=== PATIENT | female | born 1935 | race Caucasian/White ===

== ENCOUNTER 2019-07-11 11:47 | Inpatient (IN) ==
[2019-07-11] MEDS ORDERED: Albuterol 2.5 MG/3 ML NEBULIZER IH PRN (15:31)
[2019-07-11] MEDS: carvediloL 25 MG TABLET PO SCH (17:56)
[2019-07-11] MEDS: *HR* Metformin 500 MG TABLET PO SCH (17:56)
[2019-07-11] MEDS ORDERED: *HR* Warfarin 2.5 MG TABLET PO SCH (18:00)
[2019-07-11] MEDS: Doxycycline 100 MG CAPSULE PO SCH (19:51)
[2019-07-11] MEDS: Lactobacillus 1 EACH CAP.SPRINK PO SCH (19:51)
[2019-07-11] MEDS: *HR* HYDROcodone/Acet 5/325 mg TABLET PO PRN (20:54)
[2019-07-12 06:11] LABS: Basophils % 0.5 %; Eosinophils # 0.1 K/mcL (0.0-0.6); Eosinophils % 1.6 %; Hematocrit 31.9 % (35.3-44.9); Hemoglobin 10.1 g/dL (11.5-15.4); Immature Granulocytes % 1.3 % (0-4); Lymphocytes # 1.8 K/mcL (0.6-4.6); Lymphocytes % 23.9 %; Mean Corpuscular HGB Conc 31.7 g/dL (31.6-35.5); Mean Corpuscular Hemoglobin 29.9 pg (28.0-33.3); Mean Corpuscular Volume 94.4 fL (83.0-100.0); Mean Platelet Volume 10.5 fL (9.4-12.4); Monocytes # 0.4 K/mcL (0.0-1.3); Monocytes % 5.8 %; Neutrophils # 5.1 K/mcL (1.6-8.9); Platelet Count 238 K/mcL (140-400); Red Blood Count 3.38 M/mcL (3.82-4.97); Red Cell Distribution Width 14.6 % (11.5-14.5); Segmented Neutrophils % 66.9 %; White Blood Count 7.6 K/mcL (4.3-11.1)
[2019-07-12 06:35] LABS: BUN/Creatinine Ratio 23 (6-26); Blood Urea Nitrogen 15 mg/dL (8-23); Calcium 8.8 mg/dL (8.6-10.3); Carbon Dioxide 26 mEq/L (23-29); Chloride 106 mEq/L (98-107); Glucose 80 mg/dL (70-105); Osmolality,Calculated 294 (280-300); Potassium 3.8 mEq/L (3.5-5.1); Sodium 142 mEq/L (136-145); eGFR For African Americans > 60 (> 60); eGFR For Non-African Americans > 60 (> 60)
[2019-07-12] MEDS: predniSONE 10 MG TABLET PO SCH (08:00)
[2019-07-12] MEDS: carvediloL 25 MG TABLET PO SCH ×2 (08:00→16:56)
[2019-07-12] MEDS: Doxycycline 100 MG CAPSULE PO SCH ×2 (08:00→20:11)
[2019-07-12] MEDS: Folic Acid 1 MG TABLET PO SCH (08:00)
[2019-07-12] MEDS: allopurinoL 300 MG TABLET PO SCH (08:00)
[2019-07-12] MEDS: Cholecalciferol (D-3) 1,000 UNIT (25MCG) TABLET PO SCH (08:00)
[2019-07-12] MEDS: Lactobacillus 1 EACH CAP.SPRINK PO SCH ×2 (08:01→20:11)
[2019-07-12] MEDS: *HR* Metformin 500 MG TABLET PO SCH ×2 (08:01→16:56)
[2019-07-12] MEDS: Cyanocobalamin (B-12) 1,000 MCG TABLET PO SCH (08:01)
[2019-07-12] MEDS: *HR* Digoxin 0.125 MG TABLET PO SCH (08:01)
[2019-07-12] MEDS: *HR* HYDROcodone/Acet 5/325 mg TABLET PO PRN ×2 (08:24→17:00)
[2019-07-12 08:35] LABS: INR 1.8; Prothrombin Time 20.4 Seconds (9.4-12.1)
[2019-07-12] MEDS ORDERED: amLODIPine 5 MG TABLET PO SCH (09:00)
[2019-07-12] MEDS: Ertapenem 1,000 MG in 0.9 % Sodium Chloride Mini Bag 100 ML IVPB SCH (09:25)
[2019-07-12] MEDS ORDERED: amLODIPine 5 MG TABLET PO ONE (14:51)
[2019-07-12] MEDS ORDERED: Warfarin perPT PO PRN (18:00)
[2019-07-12] MEDS ORDERED: *HR* Warfarin 2.5 MG TABLET PO ONE (18:00)
[2019-07-12] MEDS ORDERED: *HR* Warfarin 1 MG TABLET PO SCH (18:00)
[2019-07-13] MEDS: *HR* HYDROcodone/Acet 5/325 mg TABLET PO PRN ×2 (05:45→21:20)
[2019-07-13] MEDS: Ertapenem 1,000 MG in 0.9 % Sodium Chloride Mini Bag 100 ML IVPB SCH (08:12)
[2019-07-13] MEDS: predniSONE 10 MG TABLET PO SCH (08:13)
[2019-07-13] MEDS: carvediloL 25 MG TABLET PO SCH ×2 (08:13→16:20)
[2019-07-13] MEDS: Cholecalciferol (D-3) 1,000 UNIT (25MCG) TABLET PO SCH (08:13)
[2019-07-13] MEDS: Doxycycline 100 MG CAPSULE PO SCH ×2 (08:13→21:20)
[2019-07-13] MEDS: allopurinoL 300 MG TABLET PO SCH (08:13)
[2019-07-13] MEDS: Lactobacillus 1 EACH CAP.SPRINK PO SCH ×2 (08:13→21:21)
[2019-07-13] MEDS: Cyanocobalamin (B-12) 1,000 MCG TABLET PO SCH (08:13)
[2019-07-13] MEDS: amLODIPine 5 MG TABLET PO SCH (08:13)
[2019-07-13] MEDS: *HR* Metformin 500 MG TABLET PO SCH ×2 (08:13→16:20)
[2019-07-13] MEDS: *HR* Digoxin 0.125 MG TABLET PO SCH (08:13)
[2019-07-13] MEDS: Folic Acid 1 MG TABLET PO SCH (08:13)
[2019-07-13 11:25] LABS: INR 1.7; Prothrombin Time 18.9 Seconds (9.4-12.1)
[2019-07-13] MEDS ORDERED: *HR* Warfarin 3 MG TABLET PO ONE (18:00)
[2019-07-14 08:21] LABS: Prothrombin Time 22.2 Seconds (9.4-12.1)
[2019-07-14] MEDS: Ertapenem 1,000 MG in 0.9 % Sodium Chloride Mini Bag 100 ML IVPB SCH (10:07)
[2019-07-14] MEDS: Lactobacillus 1 EACH CAP.SPRINK PO SCH ×2 (10:07→21:02)
[2019-07-14] MEDS: Cholecalciferol (D-3) 1,000 UNIT (25MCG) TABLET PO SCH (10:08)
[2019-07-14] MEDS: Cyanocobalamin (B-12) 1,000 MCG TABLET PO SCH (10:08)
[2019-07-14] MEDS: *HR* Digoxin 0.125 MG TABLET PO SCH (10:08)
[2019-07-14] MEDS: allopurinoL 300 MG TABLET PO SCH (10:08)
[2019-07-14] MEDS: predniSONE 10 MG TABLET PO SCH (10:08)
[2019-07-14] MEDS: carvediloL 25 MG TABLET PO SCH ×2 (10:08→18:33)
[2019-07-14] MEDS: amLODIPine 5 MG TABLET PO SCH (10:08)
[2019-07-14] MEDS: Folic Acid 1 MG TABLET PO SCH (10:08)
[2019-07-14] MEDS: *HR* Metformin 500 MG TABLET PO SCH ×2 (10:08→18:33)
[2019-07-14] MEDS: Doxycycline 100 MG CAPSULE PO SCH ×2 (10:08→21:02)
[2019-07-14] MEDS: *HR* HYDROcodone/Acet 5/325 mg TABLET PO PRN ×2 (11:31→21:02)
[2019-07-14] MEDS ORDERED: *HR* Warfarin 3 MG TABLET PO ONE (18:00)
[2019-07-15 07:41] LABS: Hematocrit 32.7 % (35.3-44.9); Hemoglobin 10.6 g/dL (11.5-15.4); Mean Corpuscular HGB Conc 32.4 g/dL (31.6-35.5); Mean Corpuscular Hemoglobin 30.2 pg (28.0-33.3); Mean Corpuscular Volume 93.2 fL (83.0-100.0); Mean Platelet Volume 10.1 fL (9.4-12.4); Platelet Count 255 K/mcL (140-400); Red Blood Count 3.51 M/mcL (3.82-4.97); Red Cell Distribution Width 14.2 % (11.5-14.5); White Blood Count 8.5 K/mcL (4.3-11.1)
[2019-07-15 07:57] LABS: Prothrombin Time 22.3 Seconds (9.4-12.1)
[2019-07-15] MEDS: Ertapenem 1,000 MG in 0.9 % Sodium Chloride Mini Bag 100 ML IVPB SCH (09:02)
[2019-07-15] MEDS: *HR* Metformin 500 MG TABLET PO SCH ×2 (09:05→17:07)
[2019-07-15] MEDS: carvediloL 25 MG TABLET PO SCH ×2 (09:05→17:07)
[2019-07-15] MEDS: Doxycycline 100 MG CAPSULE PO SCH ×2 (09:05→20:40)
[2019-07-15] MEDS: *HR* Digoxin 0.125 MG TABLET PO SCH (09:05)
[2019-07-15] MEDS: Cholecalciferol (D-3) 1,000 UNIT (25MCG) TABLET PO SCH (09:06)
[2019-07-15] MEDS: allopurinoL 300 MG TABLET PO SCH (09:06)
[2019-07-15] MEDS: Folic Acid 1 MG TABLET PO SCH (09:06)
[2019-07-15] MEDS: predniSONE 10 MG TABLET PO SCH (09:06)
[2019-07-15] MEDS: Lactobacillus 1 EACH CAP.SPRINK PO SCH ×2 (09:06→20:40)
[2019-07-15] MEDS: Cyanocobalamin (B-12) 1,000 MCG TABLET PO SCH (09:06)
[2019-07-15] MEDS: amLODIPine 5 MG TABLET PO SCH (09:06)
[2019-07-15 09:12] LABS: BUN/Creatinine Ratio 30 (6-26); Blood Urea Nitrogen 21 mg/dL (8-23); Carbon Dioxide 28 mEq/L (23-29); Chloride 105 mEq/L (98-107); Glucose 71 mg/dL (70-105); Osmolality,Calculated 293 (280-300); Sodium 141 mEq/L (136-145); eGFR For African Americans > 60 (> 60); eGFR For Non-African Americans > 60 (> 60)
[2019-07-15 09:50] LABS: Calcium 8.5 mg/dL (8.6-10.3)
[2019-07-15] MEDS: *HR* HYDROcodone/Acet 5/325 mg TABLET PO PRN (17:16)
[2019-07-15] MEDS ORDERED: *HR* Warfarin 3 MG TABLET PO ONE (18:00)
[2019-07-16] MEDS: *HR* LORazepam 0.5 MG TABLET PO PRN ×2 (04:28→21:33)
[2019-07-16 07:19] LABS: INR 2.1; Prothrombin Time 24.4 Seconds (9.4-12.1)
[2019-07-16] MEDS: Folic Acid 1 MG TABLET PO SCH (09:19)
[2019-07-16] MEDS: Cyanocobalamin (B-12) 1,000 MCG TABLET PO SCH (09:19)
[2019-07-16] MEDS: amLODIPine 5 MG TABLET PO SCH (09:19)
[2019-07-16] MEDS: carvediloL 25 MG TABLET PO SCH ×2 (09:19→18:12)
[2019-07-16] MEDS: *HR* Metformin 500 MG TABLET PO SCH ×2 (09:19→18:12)
[2019-07-16] MEDS: predniSONE 10 MG TABLET PO SCH (09:19)
[2019-07-16] MEDS: *HR* Digoxin 0.125 MG TABLET PO SCH (09:19)
[2019-07-16] MEDS: allopurinoL 300 MG TABLET PO SCH (09:19)
[2019-07-16] MEDS: Ertapenem 1,000 MG in 0.9 % Sodium Chloride Mini Bag 100 ML IVPB SCH (09:21)
[2019-07-16] MEDS: Cholecalciferol (D-3) 1,000 UNIT (25MCG) TABLET PO SCH (09:22)
[2019-07-16] MEDS: Lactobacillus 1 EACH CAP.SPRINK PO SCH ×2 (09:22→21:33)
[2019-07-16] MEDS ORDERED: *HR* Warfarin 3 MG TABLET PO ONE (18:00)
[2019-07-17] MEDS: Cyanocobalamin (B-12) 1,000 MCG TABLET PO SCH (08:16)
[2019-07-17] MEDS: predniSONE 10 MG TABLET PO SCH (08:16)
[2019-07-17] MEDS: Folic Acid 1 MG TABLET PO SCH (08:16)
[2019-07-17] MEDS: *HR* Digoxin 0.125 MG TABLET PO SCH (08:16)
[2019-07-17] MEDS: carvediloL 25 MG TABLET PO SCH ×2 (08:16→17:00)
[2019-07-17] MEDS: amLODIPine 5 MG TABLET PO SCH (08:16)
[2019-07-17] MEDS: Cholecalciferol (D-3) 1,000 UNIT (25MCG) TABLET PO SCH (08:16)
[2019-07-17 08:17] LABS: INR 2.1; Prothrombin Time 23.7 Seconds (9.4-12.1)
[2019-07-17] MEDS: Lactobacillus 1 EACH CAP.SPRINK PO SCH ×2 (08:17→20:19)
[2019-07-17] MEDS: allopurinoL 300 MG TABLET PO SCH (08:17)
[2019-07-17] MEDS: *HR* Metformin 500 MG TABLET PO SCH ×2 (08:18→17:00)
[2019-07-17] MEDS ORDERED: haloperidoL 1 MG TABLET PO PRN (09:39)
[2019-07-17] MEDS: *HR* HYDROcodone/Acet 5/325 mg TABLET PO PRN (15:25)
[2019-07-17] MEDS ORDERED: *HR* Warfarin 3 MG TABLET PO ONE (18:00)
[2019-07-18 06:49] LABS: Basophils % 0.5 %; Eosinophils # 0.1 K/mcL (0.0-0.6); Eosinophils % 1.3 %; Hematocrit 34.2 % (35.3-44.9); Immature Granulocytes % 0.3 % (0-4); Lymphocytes # 1.4 K/mcL (0.6-4.6); Mean Corpuscular HGB Conc 32.2 g/dL (31.6-35.5); Mean Corpuscular Hemoglobin 30.2 pg (28.0-33.3); Monocytes # 0.4 K/mcL (0.0-1.3); Monocytes % 5.6 %; Neutrophils # 5.8 K/mcL (1.6-8.9); Platelet Count 244 K/mcL (140-400); Red Blood Count 3.64 M/mcL (3.82-4.97); Red Cell Distribution Width 14.1 % (11.5-14.5); Segmented Neutrophils % 74.3 %; White Blood Count 7.7 K/mcL (4.3-11.1)
[2019-07-18 06:58] LABS: INR 2.9; Prothrombin Time 32.8 Seconds (9.4-12.1)
[2019-07-18 07:09] LABS: BUN/Creatinine Ratio 26 (6-26); Blood Urea Nitrogen 20 mg/dL (8-23); Calcium 8.6 mg/dL (8.6-10.3); Carbon Dioxide 25 mEq/L (23-29); Chloride 105 mEq/L (98-107); Glucose 92 mg/dL (70-105); Osmolality,Calculated 294 (280-300); Potassium 4.1 mEq/L (3.5-5.1); Sodium 141 mEq/L (136-145); eGFR For African Americans > 60 (> 60); eGFR For Non-African Americans > 60 (> 60)
[2019-07-18] MEDS: *HR* Metformin 500 MG TABLET PO SCH ×2 (09:22→17:42)
[2019-07-18] MEDS: *HR* Digoxin 0.125 MG TABLET PO SCH (09:22)
[2019-07-18] MEDS: amLODIPine 5 MG TABLET PO SCH (09:22)
[2019-07-18] MEDS: Cyanocobalamin (B-12) 1,000 MCG TABLET PO SCH (09:22)
[2019-07-18] MEDS: carvediloL 25 MG TABLET PO SCH ×2 (09:22→17:42)
[2019-07-18] MEDS: allopurinoL 300 MG TABLET PO SCH (09:22)
[2019-07-18] MEDS: Cholecalciferol (D-3) 1,000 UNIT (25MCG) TABLET PO SCH (09:22)
[2019-07-18] MEDS: predniSONE 10 MG TABLET PO SCH (09:23)
[2019-07-18] MEDS: Folic Acid 1 MG TABLET PO SCH (09:23)
[2019-07-18] MEDS: Lactobacillus 1 EACH CAP.SPRINK PO SCH ×2 (09:23→20:25)
[2019-07-18] MEDS: *HR* HYDROcodone/Acet 5/325 mg TABLET PO PRN (17:45)
[2019-07-18] MEDS ORDERED: *HR* Warfarin 1 MG TABLET PO ONE (18:00)
[2019-07-19] MEDS: Lactobacillus 1 EACH CAP.SPRINK PO SCH ×2 (08:09→21:20)
[2019-07-19] MEDS: carvediloL 25 MG TABLET PO SCH ×2 (08:09→17:03)
[2019-07-19] MEDS: *HR* Digoxin 0.125 MG TABLET PO SCH (08:09)
[2019-07-19] MEDS: Cholecalciferol (D-3) 1,000 UNIT (25MCG) TABLET PO SCH (08:09)
[2019-07-19] MEDS: Folic Acid 1 MG TABLET PO SCH (08:09)
[2019-07-19] MEDS: predniSONE 10 MG TABLET PO SCH (08:09)
[2019-07-19] MEDS: Cyanocobalamin (B-12) 1,000 MCG TABLET PO SCH (08:09)
[2019-07-19] MEDS: allopurinoL 300 MG TABLET PO SCH (08:10)
[2019-07-19] MEDS: *HR* Metformin 500 MG TABLET PO SCH ×2 (08:10→17:03)
[2019-07-19] MEDS: amLODIPine 5 MG TABLET PO SCH (08:10)
[2019-07-19] MEDS: *HR* HYDROcodone/Acet 5/325 mg TABLET PO PRN ×2 (08:14→21:25)
[2019-07-19 09:23] LABS: INR 3.3
[2019-07-20 06:49] VITALS: BP 143/80
[2019-07-20 08:10] LABS: INR 2.8; Prothrombin Time 31.7 Seconds (9.4-12.1)
[2019-07-20] MEDS: carvediloL 25 MG TABLET PO SCH (08:32)
[2019-07-20] MEDS: Cyanocobalamin (B-12) 1,000 MCG TABLET PO SCH (08:32)
[2019-07-20] MEDS: *HR* Metformin 500 MG TABLET PO SCH (08:32)
[2019-07-20] MEDS: predniSONE 10 MG TABLET PO SCH (08:32)
[2019-07-20] MEDS: Folic Acid 1 MG TABLET PO SCH (08:32)
[2019-07-20] MEDS: allopurinoL 300 MG TABLET PO SCH (08:32)
[2019-07-20] MEDS: *HR* Digoxin 0.125 MG TABLET PO SCH (08:32)
[2019-07-20] MEDS: Cholecalciferol (D-3) 1,000 UNIT (25MCG) TABLET PO SCH (08:33)
[2019-07-20] MEDS: amLODIPine 5 MG TABLET PO SCH (08:33)
[2019-07-20] MEDS: Lactobacillus 1 EACH CAP.SPRINK PO SCH (08:33)
[2019-07-20] MEDS: *HR* HYDROcodone/Acet 5/325 mg TABLET PO PRN (08:41)
== END 2019-07-20 13:07 | DRG 690 ==
LOC: INPPIK 16:26
PROVIDERS: ADMIT Family Medicine; ATTEND Family Medicine

== ENCOUNTER 2020-01-18 22:53 | Inpatient (IN) ==
[2020-01-19] MEDS: carvediloL 6.25 MG TABLET PO SCH (15:55)
[2020-01-19] MEDS: *HR* Metformin 500 MG TABLET PO SCH (17:28)
[2020-01-19] MEDS ORDERED: Warfarin perPT PO PRN (18:00)
[2020-01-19] MEDS: Gabapentin 300 MG CAPSULE PO SCH (20:15)
[2020-01-19] MEDS ORDERED: *HR* HYDROcodone/Acet 10/325 mg TABLET PO ONE (20:30)
[2020-01-19] MEDS: Budesonide/Formoterol 80/4.5 1 PUFF INH IH SCH ×2 (21:04→21:09)
[2020-01-19] MEDS ORDERED: *HR* Dextrose 50 % in Water (Vial) 50 ML VIAL IVP PRN (22:00)
[2020-01-19] MEDS ORDERED: D5% in Water 1,000 ML IVC PRN (22:00)
[2020-01-19] MEDS ORDERED: Dextrose Gel 15 GM/37.5 ML TUBE PO PRN ×2 (22:00)
[2020-01-19] MEDS: Insulin LISPRO 300 UNITS/3 ML VIAL SQ SCH (22:43)
[2020-01-20 07:22] LABS: Basophils % 0.2 %; Eosinophils % 0.2 %; Hematocrit 19.9 % (35.3-44.9); Lymphocytes # 1.3 K/mcL (0.6-4.6); Lymphocytes % 10.4 %; Mean Corpuscular HGB Conc 32.7 g/dL (31.6-35.5); Mean Corpuscular Volume 91.7 fL (83.0-100.0); Mean Platelet Volume 10.2 fL (9.4-12.4); Monocytes % 5.9 %; Nucleated Red Blood Cells 0.9 /100 WBC (0); Platelet Count 272 K/mcL (140-400); Red Blood Count 2.17 M/mcL (3.82-4.97); Red Cell Distribution Width 15.4 % (11.5-14.5); Segmented Neutrophils % 81.3 %; White Blood Count 12.6 K/mcL (4.3-11.1)
[2020-01-20 07:25] LABS: Monocytes # 0.7 K/mcL (0.0-1.3); Neutrophils # 10.2 K/mcL (1.6-8.9)
[2020-01-20 07:27] LABS: Hemoglobin 6.5 g/dL (11.5-15.4)
[2020-01-20 07:41] LABS: Calcium 8.2 mg/dL (8.6-10.3); Magnesium 1.3 mg/dL (1.6-2.6); Potassium 2.7 mEq/L (3.5-5.1)
[2020-01-20 07:43] LABS: Prothrombin Time 23.1 Seconds (9.4-12.1)
[2020-01-20] MEDS: Budesonide/Formoterol 80/4.5 1 PUFF INH IH SCH ×2 (08:30→21:19)
[2020-01-20] MEDS ORDERED: 0.9 % Sodium Chloride 250 ML IVC SCH (09:00)
[2020-01-20] MEDS: Cholecalciferol (D-3) 1,000 UNIT (25MCG) TABLET PO SCH (09:03)
[2020-01-20] MEDS: Cyanocobalamin (B-12) 1,000 MCG TABLET PO SCH (09:03)
[2020-01-20] MEDS: Gabapentin 300 MG CAPSULE PO SCH ×2 (09:03→21:09)
[2020-01-20] MEDS: Bumetanide 1 MG TABLET PO SCH (09:03)
[2020-01-20] MEDS: amLODIPine 5 MG TABLET PO SCH (09:03)
[2020-01-20] MEDS: carvediloL 6.25 MG TABLET PO SCH (09:03)
[2020-01-20] MEDS: DilTIAZem CD (24hr) 180 MG CAP.ER.24H PO SCH (09:03)
[2020-01-20] MEDS: *HR* Metformin 500 MG TABLET PO SCH ×2 (09:03→17:32)
[2020-01-20] MEDS: Insulin LISPRO 300 UNITS/3 ML VIAL SQ SCH ×4 (09:04→20:49)
[2020-01-20] MEDS: allopurinoL 300 MG TABLET PO SCH (09:04)
[2020-01-20 09:37] LABS: Estimated Average Glucose 151 mg/dl; Hemoglobin A1C 6.9 %
[2020-01-20] MEDS ORDERED: 0.9 % Sodium Chloride 500 ML IVC ONE (11:27)
[2020-01-20] MEDS ORDERED: *HR* Warfarin 2 MG TABLET PO ONE (18:00)
[2020-01-20] MEDS ORDERED: 0.9 % Sodium Chloride 250 ML ONE (23:23)
[2020-01-21 06:06] LABS: Basophils % 0.4 %; Eosinophils # 0.1 K/mcL (0.0-0.6); Eosinophils % 1.3 %; Hematocrit 28.3 % (35.3-44.9); Hemoglobin 9.6 g/dL (11.5-15.4); Immature Granulocytes % 2.6 % (0-4); Lymphocytes # 1.7 K/mcL (0.6-4.6); Lymphocytes % 18.4 %; Mean Corpuscular HGB Conc 33.9 g/dL (31.6-35.5); Mean Corpuscular Hemoglobin 29.4 pg (28.0-33.3); Mean Corpuscular Volume 86.8 fL (83.0-100.0); Mean Platelet Volume 9.7 fL (9.4-12.4); Monocytes # 0.7 K/mcL (0.0-1.3); Monocytes % 7.5 %; Neutrophils # 6.5 K/mcL (1.6-8.9); Nucleated Red Blood Cells 0.8 /100 WBC (0); Platelet Count 238 K/mcL (140-400); Red Blood Count 3.26 M/mcL (3.82-4.97); Red Cell Distribution Width 15.4 % (11.5-14.5); Segmented Neutrophils % 69.8 %; White Blood Count 9.3 K/mcL (4.3-11.1)
[2020-01-21 06:44] LABS: Calcium 8.5 mg/dL (8.6-10.3); Magnesium 1.6 mg/dL (1.6-2.6); Potassium 2.5 mEq/L (3.5-5.1)
[2020-01-21 07:11] LABS: INR 1.4; Prothrombin Time 16.1 Seconds (9.4-12.1)
[2020-01-21] MEDS: Budesonide/Formoterol 80/4.5 1 PUFF INH IH SCH ×2 (07:50→21:31)
[2020-01-21] MEDS: allopurinoL 300 MG TABLET PO SCH (09:47)
[2020-01-21] MEDS: Cholecalciferol (D-3) 1,000 UNIT (25MCG) TABLET PO SCH (09:47)
[2020-01-21] MEDS: Gabapentin 300 MG CAPSULE PO SCH ×2 (09:47→21:17)
[2020-01-21] MEDS: Acetaminophen 325 MG TABLET PO PRN (09:50)
[2020-01-21] MEDS: DilTIAZem CD (24hr) 180 MG CAP.ER.24H PO SCH (09:50)
[2020-01-21] MEDS: *HR* Metformin 500 MG TABLET PO SCH ×2 (09:51→18:01)
[2020-01-21] MEDS: Insulin LISPRO 300 UNITS/3 ML VIAL SQ SCH ×4 (09:59→20:40)
[2020-01-21] MEDS: Cyanocobalamin (B-12) 1,000 MCG TABLET PO SCH (10:00)
[2020-01-21] MEDS ORDERED: Furosemide 20 MG/2 ML VIAL IVP ONE ×2 (11:48→14:00)
[2020-01-21] MEDS ORDERED: *HR* Warfarin 4 MG TABLET PO SCH (14:08)
[2020-01-21] MEDS: *HR* OxyCODONE Immed Rel 5 MG TABLET PO PRN (18:00)
[2020-01-21] MEDS: carvediloL 6.25 MG TABLET PO SCH (18:01)
[2020-01-22 07:16] LABS: Basophils % 0.4 %; Eosinophils # 0.2 K/mcL (0.0-0.6); Eosinophils % 1.5 %; Hematocrit 28.4 % (35.3-44.9); Hemoglobin 9.4 g/dL (11.5-15.4); Immature Granulocytes % 2.6 % (0-4); Lymphocytes % 20.2 %; Mean Corpuscular HGB Conc 33.1 g/dL (31.6-35.5); Mean Corpuscular Hemoglobin 29.4 pg (28.0-33.3); Mean Corpuscular Volume 88.8 fL (83.0-100.0); Mean Platelet Volume 9.9 fL (9.4-12.4); Monocytes # 0.8 K/mcL (0.0-1.3); Monocytes % 7.9 %; Neutrophils # 6.7 K/mcL (1.6-8.9); Nucleated Red Blood Cells 0.8 /100 WBC (0); Platelet Count 246 K/mcL (140-400); Red Cell Distribution Width 16.1 % (11.5-14.5); Segmented Neutrophils % 67.4 %; White Blood Count 9.9 K/mcL (4.3-11.1)
[2020-01-22 07:54] LABS: INR 1.3; Prothrombin Time 14.8 Seconds (9.4-12.1)
[2020-01-22 08:13] LABS: Calcium 8.4 mg/dL (8.6-10.3); Potassium 4.2 mEq/L (3.5-5.1)
[2020-01-22] MEDS: Bumetanide 1 MG TABLET PO SCH (08:44)
[2020-01-22] MEDS: Cyanocobalamin (B-12) 1,000 MCG TABLET PO SCH (08:44)
[2020-01-22] MEDS: Cholecalciferol (D-3) 1,000 UNIT (25MCG) TABLET PO SCH (08:44)
[2020-01-22] MEDS: allopurinoL 300 MG TABLET PO SCH (08:44)
[2020-01-22] MEDS: carvediloL 6.25 MG TABLET PO SCH ×2 (08:44→17:24)
[2020-01-22] MEDS: DilTIAZem CD (24hr) 180 MG CAP.ER.24H PO SCH (08:44)
[2020-01-22] MEDS: Gabapentin 300 MG CAPSULE PO SCH ×2 (08:44→21:55)
[2020-01-22] MEDS: *HR* Metformin 500 MG TABLET PO SCH ×2 (08:44→17:33)
[2020-01-22] MEDS: Insulin LISPRO 300 UNITS/3 ML VIAL SQ SCH ×4 (08:45→21:54)
[2020-01-22] MEDS: amLODIPine 5 MG TABLET PO SCH (08:45)
[2020-01-22] MEDS: Budesonide/Formoterol 80/4.5 1 PUFF INH IH SCH ×2 (10:31→20:32)
[2020-01-22] MEDS: *HR* OxyCODONE Immed Rel 5 MG TABLET PO PRN (12:24)
[2020-01-22] MEDS ORDERED: *HR* Warfarin 1 MG TABLET PO ONE (18:00)
[2020-01-23] MEDS: *HR* OxyCODONE Immed Rel 5 MG TABLET PO PRN (05:23)
[2020-01-23 07:01] LABS: INR 1.2; Prothrombin Time 13.3 Seconds (9.4-12.1)
[2020-01-23] MEDS: allopurinoL 300 MG TABLET PO SCH (09:14)
[2020-01-23] MEDS: Gabapentin 300 MG CAPSULE PO SCH ×2 (09:14→20:18)
[2020-01-23] MEDS: Bumetanide 1 MG TABLET PO SCH (09:14)
[2020-01-23] MEDS: DilTIAZem CD (24hr) 180 MG CAP.ER.24H PO SCH (09:14)
[2020-01-23] MEDS: Cholecalciferol (D-3) 1,000 UNIT (25MCG) TABLET PO SCH (09:14)
[2020-01-23] MEDS: Cyanocobalamin (B-12) 1,000 MCG TABLET PO SCH (09:14)
[2020-01-23] MEDS: Insulin LISPRO 300 UNITS/3 ML VIAL SQ SCH ×4 (09:14→20:18)
[2020-01-23] MEDS: *HR* Metformin 500 MG TABLET PO SCH ×2 (09:15→17:45)
[2020-01-23] MEDS: carvediloL 6.25 MG TABLET PO SCH ×2 (09:15→17:45)
[2020-01-23 09:38] LABS: Hematocrit 30.5 % (35.3-44.9); Hemoglobin 10.1 g/dL (11.5-15.4); Mean Corpuscular HGB Conc 33.1 g/dL (31.6-35.5); Mean Corpuscular Hemoglobin 29.8 pg (28.0-33.3); Mean Platelet Volume 9.8 fL (9.4-12.4); Platelet Count 240 K/mcL (140-400); Red Blood Count 3.39 M/mcL (3.82-4.97); Red Cell Distribution Width 16.1 % (11.5-14.5); White Blood Count 11.8 K/mcL (4.3-11.1)
[2020-01-23 09:50] LABS: Calcium 8.9 mg/dL (8.6-10.3)
[2020-01-23] MEDS: Budesonide/Formoterol 80/4.5 1 PUFF INH IH SCH ×2 (10:18→22:04)
[2020-01-23] MEDS ORDERED: *HR* Warfarin 1 MG TABLET PO ONE (18:00)
[2020-01-24] MEDS: *HR* OxyCODONE Immed Rel 5 MG TABLET PO PRN (05:44)
[2020-01-24 06:45] LABS: INR 1.1; Prothrombin Time 12.9 Seconds (9.4-12.1)
[2020-01-24] MEDS: Insulin LISPRO 300 UNITS/3 ML VIAL SQ SCH ×4 (08:57→21:37)
[2020-01-24] MEDS: Budesonide/Formoterol 80/4.5 1 PUFF INH IH SCH ×3 (09:06→21:00)
[2020-01-24] MEDS: DilTIAZem CD (24hr) 180 MG CAP.ER.24H PO SCH (09:08)
[2020-01-24] MEDS: allopurinoL 300 MG TABLET PO SCH (09:08)
[2020-01-24] MEDS: Cholecalciferol (D-3) 1,000 UNIT (25MCG) TABLET PO SCH (09:08)
[2020-01-24] MEDS: carvediloL 6.25 MG TABLET PO SCH ×2 (09:08→17:45)
[2020-01-24] MEDS: Gabapentin 300 MG CAPSULE PO SCH ×2 (09:08→21:38)
[2020-01-24] MEDS: Cyanocobalamin (B-12) 1,000 MCG TABLET PO SCH (09:08)
[2020-01-24] MEDS: *HR* Metformin 500 MG TABLET PO SCH ×2 (09:08→17:44)
[2020-01-24] MEDS: Bumetanide 1 MG TABLET PO SCH (09:09)
[2020-01-24] MEDS: Ondansetron ODT 4 MG TAB.RAPDIS SL PRN (14:29)
[2020-01-24] MEDS: 0.9 % Sodium Chloride 1,000 ML IVC SCH ×2 (14:29→22:42)
[2020-01-24] MEDS ORDERED: *HR* Warfarin 2 MG TABLET PO ONE (18:00)
[2020-01-24] MEDS: Sennosides/Docusate Sodium TABLET PO SCH (21:38)
[2020-01-25] MEDS: 0.9 % Sodium Chloride 1,000 ML IVC SCH ×3 (06:30→21:43)
[2020-01-25 08:14] LABS: INR 1.1; Prothrombin Time 12.6 Seconds (9.4-12.1)
[2020-01-25] MEDS: Budesonide/Formoterol 80/4.5 1 PUFF INH IH SCH ×2 (08:38→21:45)
[2020-01-25] MEDS: allopurinoL 300 MG TABLET PO SCH (08:52)
[2020-01-25] MEDS: Sennosides/Docusate Sodium TABLET PO SCH ×2 (08:52→20:26)
[2020-01-25] MEDS: Bumetanide 1 MG TABLET PO SCH (08:52)
[2020-01-25] MEDS: DilTIAZem CD (24hr) 180 MG CAP.ER.24H PO SCH (08:52)
[2020-01-25] MEDS: *HR* Metformin 500 MG TABLET PO SCH ×2 (08:52→17:24)
[2020-01-25] MEDS: Gabapentin 300 MG CAPSULE PO SCH ×2 (08:52→20:26)
[2020-01-25] MEDS: Cyanocobalamin (B-12) 1,000 MCG TABLET PO SCH (08:53)
[2020-01-25] MEDS: Insulin LISPRO 300 UNITS/3 ML VIAL SQ SCH ×4 (08:54→20:26)
[2020-01-25] MEDS: Cholecalciferol (D-3) 1,000 UNIT (25MCG) TABLET PO SCH (08:55)
[2020-01-25] MEDS ORDERED: *HR* Warfarin 2 MG TABLET PO ONE (18:00)
[2020-01-25] MEDS: *HR* OxyCODONE Immed Rel 5 MG TABLET PO PRN (21:42)
[2020-01-26] MEDS: 0.9 % Sodium Chloride 1,000 ML IVC SCH ×3 (05:28→23:38)
[2020-01-26] MEDS: *HR* OxyCODONE Immed Rel 5 MG TABLET PO PRN (05:29)
[2020-01-26 07:59] LABS: Hemoglobin 8.8 g/dL (11.5-15.4); Mean Corpuscular HGB Conc 32.6 g/dL (31.6-35.5); Mean Corpuscular Hemoglobin 30.2 pg (28.0-33.3); Mean Corpuscular Volume 92.8 fL (83.0-100.0); Mean Platelet Volume 10.1 fL (9.4-12.4); Platelet Count 225 K/mcL (140-400); Red Blood Count 2.91 M/mcL (3.82-4.97); Red Cell Distribution Width 16.4 % (11.5-14.5); White Blood Count 9.8 K/mcL (4.3-11.1)
[2020-01-26 08:15] LABS: Calcium 8.1 mg/dL (8.6-10.3); INR 1.1; Magnesium 1.3 mg/dL (1.6-2.6); Potassium 3.8 mEq/L (3.5-5.1); Prothrombin Time 12.7 Seconds (9.4-12.1)
[2020-01-26] MEDS: Insulin LISPRO 300 UNITS/3 ML VIAL SQ SCH ×4 (08:42→21:05)
[2020-01-26] MEDS: DilTIAZem CD (24hr) 180 MG CAP.ER.24H PO SCH ×2 (08:49→09:00)
[2020-01-26] MEDS: Gabapentin 300 MG CAPSULE PO SCH ×2 (08:49→20:30)
[2020-01-26] MEDS: Sennosides/Docusate Sodium TABLET PO SCH ×2 (08:49→20:30)
[2020-01-26] MEDS: Cyanocobalamin (B-12) 1,000 MCG TABLET PO SCH (08:49)
[2020-01-26] MEDS: allopurinoL 300 MG TABLET PO SCH (08:49)
[2020-01-26] MEDS: *HR* Metformin 500 MG TABLET PO SCH ×2 (08:49→18:05)
[2020-01-26] MEDS: Cholecalciferol (D-3) 1,000 UNIT (25MCG) TABLET PO SCH (08:49)
[2020-01-26] MEDS: Budesonide/Formoterol 80/4.5 1 PUFF INH IH SCH ×2 (11:01→22:12)
[2020-01-26] MEDS ORDERED: *HR* Warfarin 2 MG TABLET PO ONE (18:00)
[2020-01-27] MEDS: 0.9 % Sodium Chloride 1,000 ML IVC SCH (06:44)
[2020-01-27 07:24] LABS: INR 1.1; Prothrombin Time 12.6 Seconds (9.4-12.1)
[2020-01-27] MEDS: Insulin LISPRO 300 UNITS/3 ML VIAL SQ SCH ×4 (08:43→21:51)
[2020-01-27] MEDS: Cholecalciferol (D-3) 1,000 UNIT (25MCG) TABLET PO SCH (08:51)
[2020-01-27] MEDS: *HR* Metformin 500 MG TABLET PO SCH ×2 (08:51→17:15)
[2020-01-27] MEDS: allopurinoL 300 MG TABLET PO SCH (08:51)
[2020-01-27] MEDS: DilTIAZem CD (24hr) 180 MG CAP.ER.24H PO SCH (08:51)
[2020-01-27] MEDS: Gabapentin 300 MG CAPSULE PO SCH ×2 (08:51→21:50)
[2020-01-27] MEDS: Sennosides/Docusate Sodium TABLET PO SCH ×2 (08:51→21:50)
[2020-01-27] MEDS: Cyanocobalamin (B-12) 1,000 MCG TABLET PO SCH (08:51)
[2020-01-27] MEDS: Budesonide/Formoterol 80/4.5 1 PUFF INH IH SCH ×2 (10:39→21:26)
[2020-01-27] MEDS: Magnesium Oxide 400 MG TABLET PO SCH ×2 (12:40→21:50)
[2020-01-27] MEDS ORDERED: *HR* Warfarin 3 MG TABLET PO ONE (18:00)
[2020-01-28 08:33] LABS: INR 1.1
[2020-01-28] MEDS: Cholecalciferol (D-3) 1,000 UNIT (25MCG) TABLET PO SCH (09:38)
[2020-01-28] MEDS: Sennosides/Docusate Sodium TABLET PO SCH ×2 (09:38→19:36)
[2020-01-28] MEDS: Insulin LISPRO 300 UNITS/3 ML VIAL SQ SCH ×4 (09:38→21:17)
[2020-01-28] MEDS: Gabapentin 300 MG CAPSULE PO SCH ×2 (09:39→19:36)
[2020-01-28] MEDS: Cyanocobalamin (B-12) 1,000 MCG TABLET PO SCH (09:39)
[2020-01-28] MEDS: DilTIAZem CD (24hr) 180 MG CAP.ER.24H PO SCH (09:39)
[2020-01-28] MEDS: *HR* Metformin 500 MG TABLET PO SCH ×2 (09:39→17:13)
[2020-01-28] MEDS: allopurinoL 300 MG TABLET PO SCH (09:39)
[2020-01-28] MEDS: Budesonide/Formoterol 80/4.5 1 PUFF INH IH SCH ×2 (11:05→21:18)
[2020-01-28] MEDS: *HR* OxyCODONE Immed Rel 5 MG TABLET PO PRN (17:16)
[2020-01-28] MEDS ORDERED: *HR* Warfarin 3 MG TABLET PO ONE (18:00)
[2020-01-29] MEDS: Insulin LISPRO 300 UNITS/3 ML VIAL SQ SCH ×4 (07:39→19:45)
[2020-01-29 08:13] LABS: Basophils # 0.1 K/mcL (0.0-0.2); Basophils % 0.7 %; Eosinophils # 0.3 K/mcL (0.0-0.6); Eosinophils % 3.5 %; Hematocrit 29.7 % (35.3-44.9); Hemoglobin 9.5 g/dL (11.5-15.4); Immature Granulocytes % 0.5 % (0-4); Lymphocytes # 1.3 K/mcL (0.6-4.6); Lymphocytes % 16.9 %; Mean Corpuscular Volume 93.7 fL (83.0-100.0); Mean Platelet Volume 10.5 fL (9.4-12.4); Monocytes # 0.5 K/mcL (0.0-1.3); Monocytes % 6.6 %; Neutrophils # 5.5 K/mcL (1.6-8.9); Platelet Count 282 K/mcL (140-400); Red Blood Count 3.17 M/mcL (3.82-4.97); Red Cell Distribution Width 17.2 % (11.5-14.5); Segmented Neutrophils % 71.8 %; White Blood Count 7.6 K/mcL (4.3-11.1)
[2020-01-29] MEDS: Cholecalciferol (D-3) 1,000 UNIT (25MCG) TABLET PO SCH (08:19)
[2020-01-29] MEDS: *HR* Metformin 500 MG TABLET PO SCH ×2 (08:19→16:59)
[2020-01-29] MEDS: allopurinoL 300 MG TABLET PO SCH (08:19)
[2020-01-29] MEDS: Gabapentin 300 MG CAPSULE PO SCH ×2 (08:19→20:31)
[2020-01-29] MEDS: DilTIAZem CD (24hr) 180 MG CAP.ER.24H PO SCH (08:19)
[2020-01-29] MEDS: Sennosides/Docusate Sodium TABLET PO SCH ×2 (08:19→20:31)
[2020-01-29] MEDS: Cyanocobalamin (B-12) 1,000 MCG TABLET PO SCH (08:20)
[2020-01-29 08:29] LABS: BUN/Creatinine Ratio 20 (6-26); Blood Urea Nitrogen 20 mg/dL (8-23); Carbon Dioxide 31 mEq/L (23-29); Chloride 102 mEq/L (98-107); Glucose 84 mg/dL (70-105); Osmolality,Calculated 288 (280-300); Potassium 3.9 mEq/L (3.5-5.1); Sodium 138 mEq/L (136-145); eGFR For African Americans > 60 (> 60); eGFR For Non-African Americans 54 (> 60)
[2020-01-29] MEDS: Budesonide/Formoterol 80/4.5 1 PUFF INH IH SCH ×2 (08:29→22:26)
[2020-01-29 08:53] LABS: INR 1.2; Prothrombin Time 13.5 Seconds (9.4-12.1)
[2020-01-29] MEDS: *HR* OxyCODONE Immed Rel 5 MG TABLET PO PRN (12:35)
[2020-01-29] MEDS ORDERED: *HR* Warfarin 3 MG TABLET PO ONE (18:00)
[2020-01-30] MEDS: Budesonide/Formoterol 80/4.5 1 PUFF INH IH SCH ×2 (07:46→22:42)
[2020-01-30 07:52] LABS: INR 1.4; Prothrombin Time 16.5 Seconds (9.4-12.1)
[2020-01-30] MEDS: Insulin LISPRO 300 UNITS/3 ML VIAL SQ SCH ×4 (08:44→19:54)
[2020-01-30] MEDS: Cholecalciferol (D-3) 1,000 UNIT (25MCG) TABLET PO SCH (08:47)
[2020-01-30] MEDS: allopurinoL 300 MG TABLET PO SCH (08:47)
[2020-01-30] MEDS: Sennosides/Docusate Sodium TABLET PO SCH ×2 (08:47→19:43)
[2020-01-30] MEDS: Gabapentin 300 MG CAPSULE PO SCH ×2 (08:48→19:43)
[2020-01-30] MEDS: Cyanocobalamin (B-12) 1,000 MCG TABLET PO SCH (08:48)
[2020-01-30] MEDS: DilTIAZem CD (24hr) 180 MG CAP.ER.24H PO SCH (08:48)
[2020-01-30] MEDS: *HR* Metformin 500 MG TABLET PO SCH ×2 (08:48→16:26)
[2020-01-30] MEDS: Nystatin POWDER 30 GM BOTTLE TP SCH ×2 (16:26→19:44)
[2020-01-30] MEDS ORDERED: *HR* Warfarin 5 MG TABLET PO ONE (18:00)
[2020-01-30] MEDS: *HR* OxyCODONE Immed Rel 5 MG TABLET PO PRN (19:43)
[2020-01-31] MEDS: *HR* OxyCODONE Immed Rel 5 MG TABLET PO PRN (07:01)
[2020-01-31 07:16] LABS: INR 1.7; Prothrombin Time 19.1 Seconds (9.4-12.1)
[2020-01-31] MEDS: Insulin LISPRO 300 UNITS/3 ML VIAL SQ SCH ×4 (09:04→19:54)
[2020-01-31] MEDS: Cholecalciferol (D-3) 1,000 UNIT (25MCG) TABLET PO SCH (09:09)
[2020-01-31] MEDS: DilTIAZem CD (24hr) 180 MG CAP.ER.24H PO SCH (09:10)
[2020-01-31] MEDS: Gabapentin 300 MG CAPSULE PO SCH ×2 (09:10→20:23)
[2020-01-31] MEDS: Sennosides/Docusate Sodium TABLET PO SCH ×2 (09:10→20:23)
[2020-01-31] MEDS: *HR* Metformin 500 MG TABLET PO SCH ×2 (09:10→16:42)
[2020-01-31] MEDS: allopurinoL 300 MG TABLET PO SCH (09:10)
[2020-01-31] MEDS: Cyanocobalamin (B-12) 1,000 MCG TABLET PO SCH (09:10)
[2020-01-31] MEDS: Nystatin POWDER 30 GM BOTTLE TP SCH ×3 (09:11→20:24)
[2020-01-31] MEDS: Budesonide/Formoterol 80/4.5 1 PUFF INH IH SCH ×2 (10:01→20:44)
[2020-01-31] MEDS ORDERED: *HR* Warfarin 5 MG TABLET PO ONE (18:00)
[2020-02-01] MEDS: *HR* OxyCODONE Immed Rel 5 MG TABLET PO PRN (05:46)
[2020-02-01 08:02] LABS: INR 1.9; Prothrombin Time 21.9 Seconds (9.4-12.1)
[2020-02-01] MEDS: Gabapentin 300 MG CAPSULE PO SCH ×2 (08:29→20:46)
[2020-02-01] MEDS: Sennosides/Docusate Sodium TABLET PO SCH ×2 (08:29→20:45)
[2020-02-01] MEDS: Cyanocobalamin (B-12) 1,000 MCG TABLET PO SCH (08:29)
[2020-02-01] MEDS: Cholecalciferol (D-3) 1,000 UNIT (25MCG) TABLET PO SCH (08:30)
[2020-02-01] MEDS: Nystatin POWDER 30 GM BOTTLE TP SCH ×3 (08:30→20:48)
[2020-02-01] MEDS: allopurinoL 300 MG TABLET PO SCH (08:30)
[2020-02-01] MEDS: *HR* Metformin 500 MG TABLET PO SCH ×2 (08:30→16:50)
[2020-02-01] MEDS: Insulin LISPRO 300 UNITS/3 ML VIAL SQ SCH ×4 (08:30→20:48)
[2020-02-01] MEDS: DilTIAZem CD (24hr) 180 MG CAP.ER.24H PO SCH (08:30)
[2020-02-01] MEDS: Budesonide/Formoterol 80/4.5 1 PUFF INH IH SCH ×2 (11:08→21:51)
[2020-02-01] MEDS ORDERED: *HR* Warfarin 5 MG TABLET PO ONE (18:00)
[2020-02-02 07:00] LABS: INR 2.1; Prothrombin Time 23.6 Seconds (9.4-12.1)
[2020-02-02] MEDS: Insulin LISPRO 300 UNITS/3 ML VIAL SQ SCH ×4 (07:27→20:17)
[2020-02-02] MEDS: carvediloL 6.25 MG TABLET PO SCH ×2 (07:38→17:33)
[2020-02-02] MEDS: *HR* Metformin 500 MG TABLET PO SCH ×2 (07:38→17:33)
[2020-02-02] MEDS: Budesonide/Formoterol 80/4.5 1 PUFF INH IH SCH ×2 (07:42→21:19)
[2020-02-02] MEDS: Cholecalciferol (D-3) 1,000 UNIT (25MCG) TABLET PO SCH (09:25)
[2020-02-02] MEDS: Sennosides/Docusate Sodium TABLET PO SCH ×2 (09:25→19:36)
[2020-02-02] MEDS: Gabapentin 300 MG CAPSULE PO SCH ×2 (09:25→19:36)
[2020-02-02] MEDS: allopurinoL 300 MG TABLET PO SCH (09:25)
[2020-02-02] MEDS: Cyanocobalamin (B-12) 1,000 MCG TABLET PO SCH (09:26)
[2020-02-02] MEDS: DilTIAZem CD (24hr) 180 MG CAP.ER.24H PO SCH (09:26)
[2020-02-02] MEDS: Nystatin POWDER 30 GM BOTTLE TP SCH ×3 (09:26→19:36)
[2020-02-02] MEDS ORDERED: *HR* Warfarin 2 MG TABLET PO ONE (18:00)
[2020-02-02] MEDS: *HR* OxyCODONE Immed Rel 5 MG TABLET PO PRN (19:40)
[2020-02-03 06:55] LABS: INR 1.9
[2020-02-03] MEDS: Insulin LISPRO 300 UNITS/3 ML VIAL SQ SCH ×4 (07:27→19:39)
[2020-02-03] MEDS: Sennosides/Docusate Sodium TABLET PO SCH ×2 (08:17→20:02)
[2020-02-03] MEDS: Gabapentin 300 MG CAPSULE PO SCH ×2 (08:17→20:02)
[2020-02-03] MEDS: carvediloL 6.25 MG TABLET PO SCH ×2 (08:17→16:17)
[2020-02-03] MEDS: *HR* Metformin 500 MG TABLET PO SCH ×2 (08:17→16:17)
[2020-02-03] MEDS: DilTIAZem CD (24hr) 180 MG CAP.ER.24H PO SCH (08:17)
[2020-02-03] MEDS: allopurinoL 300 MG TABLET PO SCH (08:18)
[2020-02-03] MEDS: Nystatin POWDER 30 GM BOTTLE TP SCH ×3 (08:18→20:09)
[2020-02-03] MEDS: Cyanocobalamin (B-12) 1,000 MCG TABLET PO SCH (08:18)
[2020-02-03] MEDS: Cholecalciferol (D-3) 1,000 UNIT (25MCG) TABLET PO SCH (08:18)
[2020-02-03] MEDS: Budesonide/Formoterol 80/4.5 1 PUFF INH IH SCH ×2 (09:09→22:18)
[2020-02-03] MEDS: *HR* OxyCODONE Immed Rel 5 MG TABLET PO PRN ×2 (13:38→20:08)
[2020-02-03] MEDS ORDERED: *HR* Warfarin 2 MG TABLET PO ONE (18:00)
[2020-02-04 06:01] LABS: INR 1.8; Prothrombin Time 20.8 Seconds (9.4-12.1)
[2020-02-04] MEDS: Budesonide/Formoterol 80/4.5 1 PUFF INH IH SCH ×2 (07:37→21:59)
[2020-02-04] MEDS: carvediloL 6.25 MG TABLET PO SCH ×2 (09:48→16:38)
[2020-02-04] MEDS: *HR* Metformin 500 MG TABLET PO SCH ×2 (09:48→16:38)
[2020-02-04] MEDS: Cholecalciferol (D-3) 1,000 UNIT (25MCG) TABLET PO SCH (09:48)
[2020-02-04] MEDS: DilTIAZem CD (24hr) 180 MG CAP.ER.24H PO SCH (09:48)
[2020-02-04] MEDS: allopurinoL 300 MG TABLET PO SCH (09:48)
[2020-02-04] MEDS: Gabapentin 300 MG CAPSULE PO SCH ×2 (09:48→19:54)
[2020-02-04] MEDS: Sennosides/Docusate Sodium TABLET PO SCH ×2 (09:48→19:54)
[2020-02-04] MEDS: Cyanocobalamin (B-12) 1,000 MCG TABLET PO SCH (09:49)
[2020-02-04] MEDS: Nystatin POWDER 30 GM BOTTLE TP SCH ×3 (09:49→19:55)
[2020-02-04] MEDS: Insulin LISPRO 300 UNITS/3 ML VIAL SQ SCH ×4 (09:58→19:58)
[2020-02-04] MEDS ORDERED: *HR* Warfarin 2 MG TABLET PO ONE (18:00)
[2020-02-05] MEDS: Insulin LISPRO 300 UNITS/3 ML VIAL SQ SCH ×4 (07:49→21:20)
[2020-02-05] MEDS: carvediloL 6.25 MG TABLET PO SCH ×2 (08:02→17:01)
[2020-02-05] MEDS: Sennosides/Docusate Sodium TABLET PO SCH ×2 (08:02→21:23)
[2020-02-05] MEDS: Gabapentin 300 MG CAPSULE PO SCH ×2 (08:02→21:23)
[2020-02-05] MEDS: Cholecalciferol (D-3) 1,000 UNIT (25MCG) TABLET PO SCH (08:02)
[2020-02-05] MEDS: Cyanocobalamin (B-12) 1,000 MCG TABLET PO SCH (08:03)
[2020-02-05] MEDS: *HR* Metformin 500 MG TABLET PO SCH ×2 (08:03→16:58)
[2020-02-05] MEDS: Nystatin POWDER 30 GM BOTTLE TP SCH ×3 (08:03→21:23)
[2020-02-05] MEDS: DilTIAZem CD (24hr) 180 MG CAP.ER.24H PO SCH (08:03)
[2020-02-05] MEDS: allopurinoL 300 MG TABLET PO SCH (08:03)
[2020-02-05 08:08] LABS: INR 1.9
[2020-02-05] MEDS: Budesonide/Formoterol 80/4.5 1 PUFF INH IH SCH ×2 (12:17→20:45)
[2020-02-05] MEDS ORDERED: *HR* Warfarin 2 MG TABLET PO ONE (18:00)
[2020-02-05] MEDS: Acetaminophen 325 MG TABLET PO PRN (21:23)
[2020-02-05] MEDS: *HR* OxyCODONE Immed Rel 5 MG TABLET PO PRN (23:22)
[2020-02-06] MEDS: Insulin LISPRO 300 UNITS/3 ML VIAL SQ SCH ×4 (07:27→19:53)
[2020-02-06] MEDS: DilTIAZem CD (24hr) 180 MG CAP.ER.24H PO SCH (07:42)
[2020-02-06] MEDS: *HR* Metformin 500 MG TABLET PO SCH ×2 (07:42→16:59)
[2020-02-06] MEDS: Sennosides/Docusate Sodium TABLET PO SCH ×2 (07:42→19:50)
[2020-02-06] MEDS: Cholecalciferol (D-3) 1,000 UNIT (25MCG) TABLET PO SCH (07:42)
[2020-02-06] MEDS: allopurinoL 300 MG TABLET PO SCH (07:43)
[2020-02-06] MEDS: Gabapentin 300 MG CAPSULE PO SCH ×2 (07:43→19:50)
[2020-02-06] MEDS: Nystatin POWDER 30 GM BOTTLE TP SCH ×3 (07:43→21:15)
[2020-02-06] MEDS: carvediloL 6.25 MG TABLET PO SCH ×2 (07:43→17:04)
[2020-02-06] MEDS: Cyanocobalamin (B-12) 1,000 MCG TABLET PO SCH (07:44)
[2020-02-06 09:55] LABS: Prothrombin Time 22.6 Seconds (9.4-12.1)
[2020-02-06] MEDS: Budesonide/Formoterol 80/4.5 1 PUFF INH IH SCH ×2 (10:00→23:07)
[2020-02-06] MEDS ORDERED: *HR* Warfarin 3 MG TABLET PO ONE (18:00)
[2020-02-06] MEDS: *HR* OxyCODONE Immed Rel 5 MG TABLET PO PRN (18:47)
[2020-02-07 08:29] LABS: INR 1.9; Prothrombin Time 21.8 Seconds (9.4-12.1)
[2020-02-07] MEDS: Insulin LISPRO 300 UNITS/3 ML VIAL SQ SCH ×4 (08:38→20:31)
[2020-02-07] MEDS: Cholecalciferol (D-3) 1,000 UNIT (25MCG) TABLET PO SCH (08:43)
[2020-02-07] MEDS: Sennosides/Docusate Sodium TABLET PO SCH ×2 (08:44→20:21)
[2020-02-07] MEDS: Cyanocobalamin (B-12) 1,000 MCG TABLET PO SCH (08:44)
[2020-02-07] MEDS: Gabapentin 300 MG CAPSULE PO SCH ×2 (08:44→20:21)
[2020-02-07] MEDS: carvediloL 6.25 MG TABLET PO SCH ×2 (08:44→17:03)
[2020-02-07] MEDS: *HR* Metformin 500 MG TABLET PO SCH ×2 (08:44→17:04)
[2020-02-07] MEDS: allopurinoL 300 MG TABLET PO SCH (08:44)
[2020-02-07] MEDS: DilTIAZem CD (24hr) 180 MG CAP.ER.24H PO SCH (08:45)
[2020-02-07] MEDS: Nystatin POWDER 30 GM BOTTLE TP SCH ×3 (08:45→20:30)
[2020-02-07] MEDS: Budesonide/Formoterol 80/4.5 1 PUFF INH IH SCH ×2 (09:29→22:24)
[2020-02-07] MEDS ORDERED: *HR* Warfarin 2 MG TABLET PO ONE (18:00)
[2020-02-07] MEDS: *HR* OxyCODONE Immed Rel 5 MG TABLET PO PRN (20:23)
[2020-02-08] MEDS: Gabapentin 300 MG CAPSULE PO SCH ×2 (08:07→20:14)
[2020-02-08] MEDS: Cholecalciferol (D-3) 1,000 UNIT (25MCG) TABLET PO SCH (08:08)
[2020-02-08] MEDS: carvediloL 6.25 MG TABLET PO SCH ×2 (08:08→17:25)
[2020-02-08] MEDS: *HR* Metformin 500 MG TABLET PO SCH ×2 (08:08→17:25)
[2020-02-08] MEDS: Sennosides/Docusate Sodium TABLET PO SCH ×2 (08:08→20:14)
[2020-02-08] MEDS: Insulin LISPRO 300 UNITS/3 ML VIAL SQ SCH ×4 (08:09→20:38)
[2020-02-08 08:10] LABS: INR 1.8
[2020-02-08] MEDS: Cyanocobalamin (B-12) 1,000 MCG TABLET PO SCH (08:10)
[2020-02-08] MEDS: allopurinoL 300 MG TABLET PO SCH (08:11)
[2020-02-08] MEDS: DilTIAZem CD (24hr) 180 MG CAP.ER.24H PO SCH (08:11)
[2020-02-08] MEDS: Budesonide/Formoterol 80/4.5 1 PUFF INH IH SCH ×2 (08:50→22:27)
[2020-02-08] MEDS: Nystatin POWDER 30 GM BOTTLE TP SCH ×3 (12:09→17:29)
[2020-02-08] MEDS ORDERED: *HR* Warfarin 5 MG TABLET PO ONE (18:00)
[2020-02-08] MEDS: *HR* OxyCODONE Immed Rel 5 MG TABLET PO PRN (20:14)
[2020-02-09 08:00] LABS: INR 1.9; Prothrombin Time 22.1 Seconds (9.4-12.1)
[2020-02-09] MEDS: Cholecalciferol (D-3) 1,000 UNIT (25MCG) TABLET PO SCH (08:34)
[2020-02-09] MEDS: Sennosides/Docusate Sodium TABLET PO SCH ×2 (08:34→20:03)
[2020-02-09] MEDS: Gabapentin 300 MG CAPSULE PO SCH ×2 (08:35→20:01)
[2020-02-09] MEDS: allopurinoL 300 MG TABLET PO SCH (08:35)
[2020-02-09] MEDS: *HR* OxyCODONE Immed Rel 5 MG TABLET PO PRN (08:35)
[2020-02-09] MEDS: *HR* Metformin 500 MG TABLET PO SCH ×2 (08:35→17:44)
[2020-02-09] MEDS: DilTIAZem CD (24hr) 180 MG CAP.ER.24H PO SCH (08:35)
[2020-02-09] MEDS: Cyanocobalamin (B-12) 1,000 MCG TABLET PO SCH (08:35)
[2020-02-09] MEDS: Insulin LISPRO 300 UNITS/3 ML VIAL SQ SCH ×4 (08:36→20:02)
[2020-02-09] MEDS: carvediloL 6.25 MG TABLET PO SCH ×2 (08:36→17:44)
[2020-02-09] MEDS: Nystatin POWDER 30 GM BOTTLE TP SCH ×3 (08:37→20:03)
[2020-02-09] MEDS: Budesonide/Formoterol 80/4.5 1 PUFF INH IH SCH ×2 (11:35→20:45)
[2020-02-09] MEDS ORDERED: *HR* Warfarin 5 MG TABLET PO ONE (18:00)
[2020-02-10 07:45] LABS: INR 2.1; Prothrombin Time 23.5 Seconds (9.4-12.1)
[2020-02-10] MEDS: DilTIAZem CD (24hr) 180 MG CAP.ER.24H PO SCH (09:29)
[2020-02-10] MEDS: *HR* Metformin 500 MG TABLET PO SCH ×2 (09:29→16:47)
[2020-02-10] MEDS: carvediloL 6.25 MG TABLET PO SCH ×2 (09:29→16:48)
[2020-02-10] MEDS: allopurinoL 300 MG TABLET PO SCH (09:30)
[2020-02-10] MEDS: Cholecalciferol (D-3) 1,000 UNIT (25MCG) TABLET PO SCH (09:30)
[2020-02-10] MEDS: Cyanocobalamin (B-12) 1,000 MCG TABLET PO SCH (09:30)
[2020-02-10] MEDS: Gabapentin 300 MG CAPSULE PO SCH ×2 (09:30→20:25)
[2020-02-10] MEDS: Insulin LISPRO 300 UNITS/3 ML VIAL SQ SCH ×4 (09:31→20:29)
[2020-02-10] MEDS: Sennosides/Docusate Sodium TABLET PO SCH ×2 (09:31→20:25)
[2020-02-10] MEDS: Nystatin POWDER 30 GM BOTTLE TP SCH ×3 (09:31→20:25)
[2020-02-10] MEDS: Ondansetron ODT 4 MG TAB.RAPDIS SL PRN (09:35)
[2020-02-10] MEDS: Budesonide/Formoterol 80/4.5 1 PUFF INH IH SCH ×2 (12:14→21:26)
[2020-02-10] MEDS ORDERED: *HR* Warfarin 5 MG TABLET PO ONE (18:00)
[2020-02-10] MEDS: *HR* OxyCODONE Immed Rel 5 MG TABLET PO PRN (20:25)
[2020-02-11] MEDS: Insulin LISPRO 300 UNITS/3 ML VIAL SQ SCH ×4 (08:33→19:23)
[2020-02-11] MEDS: carvediloL 6.25 MG TABLET PO SCH ×2 (08:38→17:06)
[2020-02-11] MEDS: Cyanocobalamin (B-12) 1,000 MCG TABLET PO SCH (08:39)
[2020-02-11] MEDS: allopurinoL 300 MG TABLET PO SCH (08:39)
[2020-02-11] MEDS: Gabapentin 300 MG CAPSULE PO SCH ×2 (08:39→19:22)
[2020-02-11] MEDS: Sennosides/Docusate Sodium TABLET PO SCH ×2 (08:39→19:22)
[2020-02-11] MEDS: *HR* Metformin 500 MG TABLET PO SCH ×2 (08:39→17:06)
[2020-02-11] MEDS: DilTIAZem CD (24hr) 180 MG CAP.ER.24H PO SCH (08:39)
[2020-02-11] MEDS: Cholecalciferol (D-3) 1,000 UNIT (25MCG) TABLET PO SCH (08:39)
[2020-02-11 08:49] LABS: INR 2.3; Prothrombin Time 25.8 Seconds (9.4-12.1)
[2020-02-11] MEDS: Budesonide/Formoterol 80/4.5 1 PUFF INH IH SCH ×2 (10:09→22:49)
[2020-02-11] MEDS: Nystatin POWDER 30 GM BOTTLE TP SCH ×3 (11:15→17:06)
[2020-02-11] MEDS: *HR* OxyCODONE Immed Rel 5 MG TABLET PO PRN (17:03)
[2020-02-11] MEDS ORDERED: *HR* Warfarin 2 MG TABLET PO ONE (18:00)
[2020-02-12] MEDS: Insulin LISPRO 300 UNITS/3 ML VIAL SQ SCH ×4 (07:50→20:52)
[2020-02-12 09:18] LABS: INR 2.3; Prothrombin Time 26.1 Seconds (9.4-12.1)
[2020-02-12] MEDS: carvediloL 6.25 MG TABLET PO SCH ×2 (09:22→16:33)
[2020-02-12] MEDS: Gabapentin 300 MG CAPSULE PO SCH ×2 (09:23→20:52)
[2020-02-12] MEDS: allopurinoL 300 MG TABLET PO SCH (09:23)
[2020-02-12] MEDS: *HR* Metformin 500 MG TABLET PO SCH ×2 (09:23→16:33)
[2020-02-12] MEDS: Cyanocobalamin (B-12) 1,000 MCG TABLET PO SCH (09:23)
[2020-02-12] MEDS: Cholecalciferol (D-3) 1,000 UNIT (25MCG) TABLET PO SCH (09:23)
[2020-02-12] MEDS: DilTIAZem CD (24hr) 180 MG CAP.ER.24H PO SCH (09:23)
[2020-02-12] MEDS: Sennosides/Docusate Sodium TABLET PO SCH ×2 (09:23→20:51)
[2020-02-12] MEDS: Nystatin POWDER 30 GM BOTTLE TP SCH ×3 (09:24→20:52)
[2020-02-12] MEDS: Budesonide/Formoterol 80/4.5 1 PUFF INH IH SCH ×2 (10:30→22:44)
[2020-02-12] MEDS: *HR* OxyCODONE Immed Rel 5 MG TABLET PO PRN (16:32)
[2020-02-12] MEDS ORDERED: *HR* Warfarin 2 MG TABLET PO ONE (18:00)
[2020-02-13 08:27] LABS: INR 1.9; Prothrombin Time 21.5 Seconds (9.4-12.1)
[2020-02-13] MEDS: *HR* OxyCODONE Immed Rel 5 MG TABLET PO PRN ×2 (08:39→17:32)
[2020-02-13] MEDS: Insulin LISPRO 300 UNITS/3 ML VIAL SQ SCH ×4 (08:39→20:03)
[2020-02-13] MEDS: Sennosides/Docusate Sodium TABLET PO SCH ×2 (08:41→20:14)
[2020-02-13] MEDS: *HR* Metformin 500 MG TABLET PO SCH ×2 (08:41→16:38)
[2020-02-13] MEDS: Cyanocobalamin (B-12) 1,000 MCG TABLET PO SCH (08:42)
[2020-02-13] MEDS: carvediloL 6.25 MG TABLET PO SCH ×2 (08:42→16:36)
[2020-02-13] MEDS: Cholecalciferol (D-3) 1,000 UNIT (25MCG) TABLET PO SCH (08:42)
[2020-02-13] MEDS: allopurinoL 300 MG TABLET PO SCH (08:42)
[2020-02-13] MEDS: DilTIAZem CD (24hr) 180 MG CAP.ER.24H PO SCH (08:43)
[2020-02-13] MEDS: Nystatin POWDER 30 GM BOTTLE TP SCH ×3 (08:44→20:14)
[2020-02-13] MEDS: Budesonide/Formoterol 80/4.5 1 PUFF INH IH SCH ×2 (08:55→22:51)
[2020-02-13] MEDS: Gabapentin 300 MG CAPSULE PO SCH ×2 (08:56→20:13)
[2020-02-13] MEDS ORDERED: *HR* Warfarin 2 MG TABLET PO ONE (18:00)
[2020-02-14] MEDS: DilTIAZem CD (24hr) 180 MG CAP.ER.24H PO SCH ×2 (08:00→08:06)
[2020-02-14] MEDS: Cyanocobalamin (B-12) 1,000 MCG TABLET PO SCH (08:00)
[2020-02-14] MEDS: carvediloL 6.25 MG TABLET PO SCH ×3 (08:00→17:40)
[2020-02-14] MEDS: Cholecalciferol (D-3) 1,000 UNIT (25MCG) TABLET PO SCH (08:00)
[2020-02-14] MEDS: *HR* Metformin 500 MG TABLET PO SCH ×2 (08:00→17:34)
[2020-02-14] MEDS: Gabapentin 300 MG CAPSULE PO SCH ×2 (08:00→20:21)
[2020-02-14] MEDS: Sennosides/Docusate Sodium TABLET PO SCH ×2 (08:00→20:21)
[2020-02-14] MEDS: allopurinoL 300 MG TABLET PO SCH (08:00)
[2020-02-14] MEDS: Insulin LISPRO 300 UNITS/3 ML VIAL SQ SCH ×4 (08:01→20:26)
[2020-02-14] MEDS: Nystatin POWDER 30 GM BOTTLE TP SCH ×3 (08:01→20:21)
[2020-02-14 08:09] LABS: Basophils # 0.1 K/mcL (0.0-0.2); Basophils % 0.6 %; Eosinophils # 0.2 K/mcL (0.0-0.6); Eosinophils % 2.5 %; Hematocrit 31.4 % (35.3-44.9); Hemoglobin 10.2 g/dL (11.5-15.4); Lymphocytes # 1.6 K/mcL (0.6-4.6); Lymphocytes % 19.5 %; Mean Corpuscular HGB Conc 32.5 g/dL (31.6-35.5); Mean Corpuscular Hemoglobin 29.9 pg (28.0-33.3); Mean Corpuscular Volume 92.1 fL (83.0-100.0); Mean Platelet Volume 10.2 fL (9.4-12.4); Monocytes # 0.6 K/mcL (0.0-1.3); Monocytes % 7.8 %; Neutrophils # 5.5 K/mcL (1.6-8.9); Platelet Count 264 K/mcL (140-400); Red Blood Count 3.41 M/mcL (3.82-4.97); Red Cell Distribution Width 16.3 % (11.5-14.5); Segmented Neutrophils % 68.6 %
[2020-02-14 08:18] LABS: INR 1.8; Prothrombin Time 20.7 Seconds (9.4-12.1)
[2020-02-14 08:22] LABS: BUN/Creatinine Ratio 25 (6-26); Blood Urea Nitrogen 19 mg/dL (8-23); Calcium 9.1 mg/dL (8.6-10.3); Carbon Dioxide 29 mEq/L (23-29); Chloride 101 mEq/L (98-107); Glucose 86 mg/dL (70-105); Osmolality,Calculated 288 (280-300); Potassium 3.6 mEq/L (3.5-5.1); Sodium 138 mEq/L (136-145); eGFR For African Americans > 60 (> 60); eGFR For Non-African Americans > 60 (> 60)
[2020-02-14] MEDS: Budesonide/Formoterol 80/4.5 1 PUFF INH IH SCH ×2 (11:47→22:03)
[2020-02-14] MEDS ORDERED: *HR* Warfarin 5 MG TABLET PO ONE (18:00)
[2020-02-14] MEDS: *HR* OxyCODONE Immed Rel 5 MG TABLET PO PRN (22:40)
[2020-02-15] MEDS: Insulin LISPRO 300 UNITS/3 ML VIAL SQ SCH ×4 (07:21→20:21)
[2020-02-15] MEDS: Gabapentin 300 MG CAPSULE PO SCH ×2 (09:04→20:22)
[2020-02-15] MEDS: Sennosides/Docusate Sodium TABLET PO SCH ×2 (09:04→20:21)
[2020-02-15] MEDS: Cholecalciferol (D-3) 1,000 UNIT (25MCG) TABLET PO SCH (09:04)
[2020-02-15] MEDS: allopurinoL 300 MG TABLET PO SCH (09:05)
[2020-02-15] MEDS: Nystatin POWDER 30 GM BOTTLE TP SCH ×3 (09:05→20:21)
[2020-02-15] MEDS: DilTIAZem CD (24hr) 180 MG CAP.ER.24H PO SCH (09:05)
[2020-02-15] MEDS: *HR* Metformin 500 MG TABLET PO SCH ×2 (09:05→16:57)
[2020-02-15] MEDS: carvediloL 6.25 MG TABLET PO SCH ×2 (09:05→16:58)
[2020-02-15] MEDS: Cyanocobalamin (B-12) 1,000 MCG TABLET PO SCH (09:06)
[2020-02-15] MEDS: Ondansetron ODT 4 MG TAB.RAPDIS SL PRN (10:03)
[2020-02-15 10:23] LABS: INR 1.7
[2020-02-15 10:24] LABS: Prothrombin Time 19.8 Seconds (9.4-12.1)
[2020-02-15] MEDS: Budesonide/Formoterol 80/4.5 1 PUFF INH IH SCH ×2 (11:32→21:48)
[2020-02-15] MEDS ORDERED: *HR* Warfarin 5 MG TABLET PO ONE (18:00)
[2020-02-15] MEDS: *HR* OxyCODONE Immed Rel 5 MG TABLET PO PRN (21:53)
[2020-02-16] MEDS: Insulin LISPRO 300 UNITS/3 ML VIAL SQ SCH ×4 (07:17→21:05)
[2020-02-16 08:53] LABS: INR 1.9; Prothrombin Time 21.7 Seconds (9.4-12.1)
[2020-02-16] MEDS: Gabapentin 300 MG CAPSULE PO SCH ×2 (09:03→21:05)
[2020-02-16] MEDS: *HR* Metformin 500 MG TABLET PO SCH ×2 (09:03→16:12)
[2020-02-16] MEDS: allopurinoL 300 MG TABLET PO SCH (09:03)
[2020-02-16] MEDS: Cyanocobalamin (B-12) 1,000 MCG TABLET PO SCH (09:03)
[2020-02-16] MEDS: Sennosides/Docusate Sodium TABLET PO SCH ×2 (09:03→21:05)
[2020-02-16] MEDS: carvediloL 6.25 MG TABLET PO SCH ×2 (09:03→16:15)
[2020-02-16] MEDS: Nystatin POWDER 30 GM BOTTLE TP SCH ×3 (09:04→21:07)
[2020-02-16] MEDS: Cholecalciferol (D-3) 1,000 UNIT (25MCG) TABLET PO SCH (09:04)
[2020-02-16] MEDS: DilTIAZem CD (24hr) 180 MG CAP.ER.24H PO SCH (09:04)
[2020-02-16] MEDS: Ondansetron ODT 4 MG TAB.RAPDIS SL PRN (09:08)
[2020-02-16] MEDS: Budesonide/Formoterol 80/4.5 1 PUFF INH IH SCH ×2 (10:23→21:37)
[2020-02-16] MEDS ORDERED: *HR* Warfarin 5 MG TABLET PO ONE (18:00)
[2020-02-16] MEDS: *HR* OxyCODONE Immed Rel 5 MG TABLET PO PRN (18:48)
[2020-02-17] MEDS: Budesonide/Formoterol 80/4.5 1 PUFF INH IH SCH ×2 (07:36→21:54)
[2020-02-17] MEDS: Insulin LISPRO 300 UNITS/3 ML VIAL SQ SCH ×4 (08:36→19:35)
[2020-02-17] MEDS: Sennosides/Docusate Sodium TABLET PO SCH ×2 (08:40→19:36)
[2020-02-17] MEDS: *HR* Metformin 500 MG TABLET PO SCH ×2 (08:40→16:32)
[2020-02-17] MEDS: Cholecalciferol (D-3) 1,000 UNIT (25MCG) TABLET PO SCH (08:40)
[2020-02-17] MEDS: allopurinoL 300 MG TABLET PO SCH (08:41)
[2020-02-17] MEDS: Gabapentin 300 MG CAPSULE PO SCH ×2 (08:41→19:36)
[2020-02-17] MEDS: Ondansetron ODT 4 MG TAB.RAPDIS SL PRN (08:41)
[2020-02-17] MEDS: Cyanocobalamin (B-12) 1,000 MCG TABLET PO SCH (08:41)
[2020-02-17] MEDS: DilTIAZem CD (24hr) 180 MG CAP.ER.24H PO SCH (08:41)
[2020-02-17] MEDS: Nystatin POWDER 30 GM BOTTLE TP SCH ×3 (08:43→19:36)
[2020-02-17] MEDS: carvediloL 6.25 MG TABLET PO SCH (08:44)
[2020-02-17 09:44] LABS: INR 2.2; Prothrombin Time 24.9 Seconds (9.4-12.1)
[2020-02-17] MEDS: *HR* OxyCODONE Immed Rel 5 MG TABLET PO PRN (16:32)
[2020-02-17] MEDS ORDERED: *HR* Warfarin 2 MG TABLET PO ONE (18:00)
[2020-02-17] MEDS: Acetaminophen 325 MG TABLET PO PRN (19:36)
[2020-02-18] MEDS: Insulin LISPRO 300 UNITS/3 ML VIAL SQ SCH ×4 (07:15→20:23)
[2020-02-18] MEDS: Budesonide/Formoterol 80/4.5 1 PUFF INH IH SCH ×2 (09:50→21:53)
[2020-02-18 09:55] LABS: INR 2.2; Prothrombin Time 25.4 Seconds (9.4-12.1)
[2020-02-18] MEDS: Gabapentin 300 MG CAPSULE PO SCH ×2 (10:22→20:24)
[2020-02-18] MEDS: *HR* OxyCODONE Immed Rel 5 MG TABLET PO PRN ×2 (10:22→17:30)
[2020-02-18] MEDS: allopurinoL 300 MG TABLET PO SCH (10:23)
[2020-02-18] MEDS: Cholecalciferol (D-3) 1,000 UNIT (25MCG) TABLET PO SCH (10:23)
[2020-02-18] MEDS: *HR* Metformin 500 MG TABLET PO SCH ×2 (10:23→17:30)
[2020-02-18] MEDS: Ondansetron ODT 4 MG TAB.RAPDIS SL PRN (10:23)
[2020-02-18] MEDS: Nystatin POWDER 30 GM BOTTLE TP SCH ×3 (10:23→20:23)
[2020-02-18] MEDS: Cyanocobalamin (B-12) 1,000 MCG TABLET PO SCH (10:23)
[2020-02-18] MEDS: Sennosides/Docusate Sodium TABLET PO SCH ×2 (10:23→20:24)
[2020-02-18] MEDS: DilTIAZem CD (24hr) 180 MG CAP.ER.24H PO SCH (10:23)
[2020-02-18] MEDS ORDERED: *HR* Warfarin 2 MG TABLET PO ONE (18:00)
[2020-02-19] MEDS: Insulin LISPRO 300 UNITS/3 ML VIAL SQ SCH ×4 (07:36→20:30)
[2020-02-19] MEDS: allopurinoL 300 MG TABLET PO SCH (08:06)
[2020-02-19] MEDS: *HR* Metformin 500 MG TABLET PO SCH ×2 (08:06→17:23)
[2020-02-19] MEDS: DilTIAZem CD (24hr) 180 MG CAP.ER.24H PO SCH (08:06)
[2020-02-19] MEDS: Cholecalciferol (D-3) 1,000 UNIT (25MCG) TABLET PO SCH (08:06)
[2020-02-19] MEDS: Gabapentin 300 MG CAPSULE PO SCH ×2 (08:06→20:29)
[2020-02-19] MEDS: Sennosides/Docusate Sodium TABLET PO SCH ×2 (08:07→20:26)
[2020-02-19] MEDS: Cyanocobalamin (B-12) 1,000 MCG TABLET PO SCH (08:07)
[2020-02-19] MEDS: Ondansetron ODT 4 MG TAB.RAPDIS SL PRN (08:56)
[2020-02-19] MEDS: *HR* OxyCODONE Immed Rel 5 MG TABLET PO PRN ×2 (09:10→21:40)
[2020-02-19 09:14] LABS: INR 2.4; Prothrombin Time 27.3 Seconds (9.4-12.1)
[2020-02-19] MEDS ORDERED: *HR* Warfarin 3 MG TABLET PO STA (09:32)
[2020-02-19] MEDS: Nystatin POWDER 30 GM BOTTLE TP SCH ×3 (09:55→20:30)
[2020-02-19] MEDS: Budesonide/Formoterol 80/4.5 1 PUFF INH IH SCH ×2 (10:16→23:28)
[2020-02-20] MEDS: allopurinoL 300 MG TABLET PO SCH (09:32)
[2020-02-20] MEDS: Cholecalciferol (D-3) 1,000 UNIT (25MCG) TABLET PO SCH (09:32)
[2020-02-20] MEDS: DilTIAZem CD (24hr) 180 MG CAP.ER.24H PO SCH (09:32)
[2020-02-20] MEDS: Insulin LISPRO 300 UNITS/3 ML VIAL SQ SCH ×4 (09:33→19:41)
[2020-02-20] MEDS: *HR* Metformin 500 MG TABLET PO SCH ×2 (09:33→17:36)
[2020-02-20] MEDS: Cyanocobalamin (B-12) 1,000 MCG TABLET PO SCH (09:33)
[2020-02-20] MEDS: Gabapentin 300 MG CAPSULE PO SCH ×2 (09:33→20:41)
[2020-02-20] MEDS: Nystatin POWDER 30 GM BOTTLE TP SCH ×3 (09:34→20:41)
[2020-02-20] MEDS: Sennosides/Docusate Sodium TABLET PO SCH ×2 (09:34→20:41)
[2020-02-20] MEDS: Ondansetron ODT 4 MG TAB.RAPDIS SL PRN (09:37)
[2020-02-20 10:45] LABS: INR 2.5
[2020-02-20] MEDS: Budesonide/Formoterol 80/4.5 1 PUFF INH IH SCH ×2 (11:19→23:36)
[2020-02-20] MEDS: *HR* OxyCODONE Immed Rel 5 MG TABLET PO PRN (17:38)
[2020-02-20] MEDS ORDERED: *HR* Warfarin 2.5 MG TABLET PO ONE (18:00)
[2020-02-21] MEDS: Insulin LISPRO 300 UNITS/3 ML VIAL SQ SCH ×4 (07:47→20:08)
[2020-02-21] MEDS: allopurinoL 300 MG TABLET PO SCH (08:41)
[2020-02-21] MEDS: DilTIAZem CD (24hr) 180 MG CAP.ER.24H PO SCH (08:41)
[2020-02-21] MEDS: Cyanocobalamin (B-12) 1,000 MCG TABLET PO SCH (08:42)
[2020-02-21] MEDS: Cholecalciferol (D-3) 1,000 UNIT (25MCG) TABLET PO SCH (08:42)
[2020-02-21] MEDS: Gabapentin 300 MG CAPSULE PO SCH ×2 (08:42→20:21)
[2020-02-21] MEDS: *HR* Metformin 500 MG TABLET PO SCH ×2 (08:42→17:26)
[2020-02-21] MEDS: Ondansetron ODT 4 MG TAB.RAPDIS SL PRN (08:43)
[2020-02-21] MEDS: *HR* OxyCODONE Immed Rel 5 MG TABLET PO PRN ×2 (09:24→17:28)
[2020-02-21] MEDS: Budesonide/Formoterol 80/4.5 1 PUFF INH IH SCH ×2 (09:32→21:11)
[2020-02-21 09:51] LABS: INR 2.4; Prothrombin Time 27.4 Seconds (9.4-12.1)
[2020-02-21] MEDS: Nystatin POWDER 30 GM BOTTLE TP SCH ×3 (11:01→20:21)
[2020-02-21] MEDS: Sennosides/Docusate Sodium TABLET PO SCH ×2 (11:01→20:21)
[2020-02-21] MEDS ORDERED: *HR* Warfarin 3 MG TABLET PO ONE (18:00)
[2020-02-22 07:02] VITALS: BP 96/63
[2020-02-22] MEDS: Insulin LISPRO 300 UNITS/3 ML VIAL SQ SCH ×2 (08:06→11:50)
[2020-02-22] MEDS: Budesonide/Formoterol 80/4.5 1 PUFF INH IH SCH (08:06)
[2020-02-22] MEDS: Gabapentin 300 MG CAPSULE PO SCH (08:12)
[2020-02-22] MEDS: Cholecalciferol (D-3) 1,000 UNIT (25MCG) TABLET PO SCH (08:12)
[2020-02-22] MEDS: DilTIAZem CD (24hr) 180 MG CAP.ER.24H PO SCH (08:12)
[2020-02-22] MEDS: Sennosides/Docusate Sodium TABLET PO SCH (08:12)
[2020-02-22] MEDS: *HR* Metformin 500 MG TABLET PO SCH (08:13)
[2020-02-22] MEDS: Cyanocobalamin (B-12) 1,000 MCG TABLET PO SCH (08:13)
[2020-02-22] MEDS: Nystatin POWDER 30 GM BOTTLE TP SCH (08:13)
[2020-02-22] MEDS: allopurinoL 300 MG TABLET PO SCH (08:13)
[2020-02-22] MEDS: *HR* OxyCODONE Immed Rel 5 MG TABLET PO PRN (08:18)
[2020-02-22 09:22] LABS: INR 2.1; Prothrombin Time 23.9 Seconds (9.4-12.1)
[2020-02-22] MEDS ORDERED: *HR* Warfarin 2 MG TABLET PO ONE (18:00)
== END 2020-02-22 12:20 | disposition hospice, home (50) | DRG 560 ==
LOC: INPPIK 01-19 14:28
PROVIDERS: ADMIT Family Medicine; ATTEND Family Medicine